=== PATIENT | female | born 1950 | race Caucasian/White ===

== ENCOUNTER 2022-01-08 00:49 | Emergency (ER) | payer MEDICARE, SELFPAY ==
--- NOTE | 2022-01-08 01:09 | XRR_ITS ---
PROCEDURE INFORMATION: Exam: XR Chest Exam date and time: 01/08/2022 1:21 AM Age: 71 years old Clinical indication: Shortness of breath; Patient HX: C/O SOB with tachycardia. ; Additional info: Rapid hr TECHNIQUE: Imaging protocol: XR of the chest. Views: 1 view. COMPARISON: No relevant prior studies available. FINDINGS: Tubes, catheters and devices: Monitor leads project over the chest. Lungs: Low lung volumes. No consolidation. Pleural spaces: No significant costophrenic angle blunting. No pneumothorax. Heart/Mediastinum: Heart size is normal. Vasculature: Atherosclerotic tortuosity of the thoracic aorta. Bones/joints: Thoracic spondylosis and degenerative bony changes. Soft tissues: Large body habitus. XR/XR chest 1V portable [id number] IMPRESSION: No acute abnormality demonstrated.
--- NOTE | 2022-01-08 01:10 | ECG_ITS ---
[facility] Test Date: 2022-01-08 Pat Name: Magnolia Reece Department: Room: Gender: Female Loading And Unloading Supervisor: : 1950 Requested By: Hunter Monet Order Number: [id number] Edna MD: Cj Rose M.D. Measurements Intervals [place] Rate: 127 P: 235 [place]: 205 QRS: -3 QRSD: 105 T: 32 QT: 281 QTc: 410 Interpretive Statements ECTOPIC ATRIAL TACHYCARDIA LOW QRS VOLTAGE IN PRECORDIAL LEADS [QRS DEFLECTION < 1.0 mV IN CHEST LEADS] POSSIBLE ANTERIOR MYOCARDIAL INFARCTION , PROBABLY OLD [30 ms Q WAVE IN V3/V4, OR R < 0.2 mV IN V4] INFERIOR MYOCARDIAL INFARCTION , PROBABLY OLD [40+ ms Q WAVE AND/OR ST/T ABNORMALITY IN II/aVF] No previous ECG available for comparison Electronically Signed On 01-08-2022 22:18:01 CDT by Cj Rose M.D. [id number]
[2022-01-08 01:26] LABS: Add Urine Microscopic? NO; Charge for UA Resulting for Rev
[2022-01-08 01:27] VITALS: BP 132/78; PULSE 105; RESP 20; TEMP 36.4; O2SAT 97; BMI 54.9
--- NOTE | 2022-01-08 01:45 | ED_ITS ---
HPI - Arrhythmia/Palpitations General: Chief Complaint: Arrhythmia/Palpitations Stated Complaint: High heart rate Time Seen by Provider: 01/08/22 01:11 Source: patient Mode of arrival: ambulatory Limitations: no limitations History of Present Illness: A. [id number] female who states she has a history of IBS with chronic diarrhea along with what she takes propafenone and metoprolol for. She states she usually does not have palpitations but over the last 2 days she has been having increased diarrhea from her IBS and then tonight started to have her heart racing states that her heart rate was in the 120s and had been able to get under control. She denies any chest pain denies any abdominal pain denies any fever denies any worsening or improving factors. Review of Systems Const: Denies: fever(s), chills, body aches or change in appetite Eyes: Denies: blurry vision or eye discomfort ENMT: Denies: throat pain or dental pain Card: Reports: palpitations Resp: Denies: dyspnea GI: Reports: diarrhea : Denies: dysuria Musc: Denies: neck pain or back pain Skin/Breast: Denies: rash Neuro: Denies: headache(s) Psych: Denies: depression Fernando/Lymph: Denies: easy bruising All/Imm: Denies: urticaria PFSH ED PFSH: Medical History (Updated 01/08/22 @ 04:15 by Mau Chaudhary MD) Atrial fibrillation Social History (Updated 01/08/22 @ 01:46 by Mau Chaudhary MD) Substance/Drug Use: never Physical Exam Const: COMMON NORMALS: no acute distress, patient oriented x3 and healthy appearing HENMT: COMMON NORMALS: normocephalic and atraumatic HEAD & SCALP: normocephalic and atraumatic Eye: COMMON NORMALS: Equal, round and reactive pupils present and EOMs intact bilaterally PUPIL: Yes Equal, round and reactive pupils present Neck/C-Spine: COMMON NORMALS: full ROM and supple Chest: COMMONS NORMALS: normal inspection of the chest and normal palpation of entire chest wall Resp: COMMON NORMALS: normal respiratory effort, No retractions, No use of acc essory muscles and clear to auscultation bilaterally AUSCULTATION: clear to auscultation bilaterally Cardio: COMMON NORMALS: No murmurs present (Cardio) RATE: tachycardic RHYTHM: abnormal rhythm irregularly irregular GI: COMMON NORMALS: Normal to inspection, nondistended, normoactive bowel sounds present, Soft to palpation, non-tender and no masses PALPATION: Yes Soft to palpation Extremity: COMMON NORMALS: normal to inspection and full ROM Neuro: COMMON NORMALS: patient oriented x3, moves all extremities and no focal motor deficits Psych: COMMON NORMALS: mental status grossly normal, Normal thought process present and cooperative THOUGHT PROCESS: Normal thought process present Skin: COMMON NORMALS: no rashes or lesions noted and no wounds GENERAL SKIN EXAM: no rashes or lesions noted Course Vital Signs: Vital signs: Vital Signs Temperature 97.6 F 01/08/22 01:27 Pulse Rate 83 01/08/22 03:11 Respiratory Rate 22 H 01/08/22 03:11 Blood Pressure 135/74 01/08/22 03:11 Pulse Oximetry 95 01/08/22 03:11 MDM - Arrhythmia/Palpitations Medical Decision Making Patient presents here with Drew. mason RVR much improved here after Cardizem metoprolol her heart rate is now in the 70s she does have diarrhea but is chronic in nature she has some nausea will prescribe her Zofran for home her b lood work here is all normal she is follow-up with PCP and return if worsening. Lab Data : 01/08/22 01:23 01/08/22 01:23 Radiology Impressions Chest X-Ray 01/08/22 01:09 IMPRESSION: No acute abnormality demonstrated. Laboratory Results WBC 11.8 10^3/uL (4.0-10.0) H 01/08/22 01:23 RBC 4.55 10^6/uL (4.1-5.3) 01/08/22 01:23 Hgb 12.6 g/dL (11.5-15.3) 01/08/22 01:23 Hct 41.2 % (37.0-47.0) 01/08/22 01:23 MCV 90.5 fl (81-99) 01/08/22 01:23 MCH 27.7 pg (28.0-34.0) L 01/08/22 01:23 MCHC 30.6 g/dL (30.0-36.0) 01/08/22 01:23 RDW 15.7 % (12.1-15.1) H 01/08/22 01: Plt Count 360 10^3/cmm (130-400) 01/08/22 01: MPV 9.5 fL (7.4-10.4) 01/08/22 01: Neut % (Auto) 76.1 % 01/08/22 01: Lymph % (Auto) 16.1 % 01/08/22 01: [place] % (Auto) 6.4 % 01/08/22 01: Eos % (Auto) 0.6 % 01/08/22 01: Baso % (Auto) 0.3 % 01/08/22 01: Neut # (Auto) 8.99 10^3/uL (1.8-7.7) H 01/08/22: Lymph # (Auto) 1.9 10^3/uL (0.8-4.8) 01/08/22: [place] # (Auto) 0.8 10^3/uL (0.2-0.9) 01/08/22 01: Eos # (Auto) 0.1 10^3/uL (0.0-0.8) 01/08/22 01: Baso # (Auto) 0.0 10^3/uL (0.0-0.1) 01/08/22: Nucleated RBC % (auto) 0 % 01/08/22: Nucleated RBCs # 0.0 /100WBC 01/08/22: PT 13.90 SECONDS (12.1-14.9) 01/08/22: INR 1.04 (0.8-1.2) 01/08/22 01: APTT 32.0 SECONDS (23.9-36.7) 01/08/22 01: D-Dimer 0.52 ug/mIFEU (0-0.59) 01/08/22 01: Sodium 133 mmol/L (136-145) L 01/08/22 01: Potassium 3.7 mmol/L (3.5-5.1) 01/08/22 01: Chloride 97 mmol/L (98-107) L 01/08/22 01: Carbon Dioxide 23 mmol/L (22-29) 01/08/22 01: Anion Gap 16.7 (5-19) 01/08/22 01: BUN 10 mg/dL (8-23) 01/08/22 01: Creatinine 0.5 mg/dL (0.5-0.9) 01/08/22 01: GFR Calculation Not Reportable 01/08/22 01: Glucose 120 mg/dL (65-115) H 01/08/22 01: Calculated Osmolality 276 mOsm/kg (285-295) L 01/08/22 01: Calcium 9.9 mg/dL (8.5-10.5) 01/08/22: Total Bilirubin 0.6 mg/dL (0.15-1.2) 01/08/22: AST 19 U/L (0-32) 01/08/22 01: ALT 18 U/L (0-33) 01/08/22 01: Alkaline Phosphatase 77 IU/L (35-105) 01/08/22 01: Troponin T Baseline 34 ng/L (0-10) H 01/08/22 01: Troponin T 120 Minute 35.57 ng/L (0-10) H 01/08/22 03:30 Delta Troponin T 1.57 ABS# (0-10) 01/08/22 03:30 NT-Pro-B Natriuret Pep 240 pg/mL (0-125) H 01/08/22 01:23 Total Protein 7.4 g/dL (6.6-8.7) 01/08/22 01: Albumin 4.1 g/dL (3.5-5.2) 01/08/22: Globulin 3.3 g/dL (1.3-4.6) 01/08/22 01: TSH 2.13 uIU/mL (0.27-4.20) 01/08/22 01: Urine Color Yellow (Yellow) 01/08/22: Urine Appearance Clear (CLEAR) 01/08/22: Urine pH 5 (5-7) 01/08/22: Ur Specific [place] 1.005 (1.005-1.030) 01/08/22 01: Urine Protein Neg (Negative) 01/08/22: Urine Glucose (UA) Norm (Normal) 04/20/22 01:23 Urine Ketones Negative (Negative) 01/08/22 01:23 Urine Blood Neg (Negative) 01/08/22 01:23 Urine Nitrate Negative (Negative) 01/08/22 01:23 Urine Bilirubin Neg (Negative) 01/08/22 01:23 Urine Urobilinogen Norm mg/dL (Negative) 01/08/22 01:23 Ur Leukocyte Esterase Negative (Negative) 01/08/22 01:23 EKG Data EKG 1: I personally reviewed and interpreted this EKG as follows: EKG interpretation date: 01/08/22 EKG interpretation time: 02:15 Interpretation: Atrial fibrillation heart rate [address] or T wave abnormalities QRS 78 QTC 368 Other EKG comments: Chest X-Ray 01/08/22 01:09 IMPRESSION: No acute abnormality demonstrated. Discharge Plan Discharge Patient Disposition: Home Clinical Impression: Atrial fibrillation, Diarrhea Prescriptions: New ondansetron 4 mg tablet,disintegrating 4 mg PO Q6H PRN (Reason: nausea and vomiting) Qty: 14 0RF No Action metoprolol succinate 50 mg Capsule,Sprinkle,Er 24hr 50 mg PO DAILY 0RF propafenone 150 mg Tablet 150 mg PO BID 0RF Rx Instructions: space evenly during waking hours Vitamin D3 125 mcg (5,000 unit) Tablet 1 unit PO ONCE 0RF Rx Instructions: weekly multivitamin Tablet 1 tab PO DAILY 0RF Discharge Orders: Discharge ED (Routine); Ordered 01/08/22 Ordered By: Mau Chaudhary Discharge Diet: Advance as tolerated Discharge Activity: Resume usual activity Patient Instructions: A-fib (Atrial Fibrillation) (ED) Coding Level of Care Code ED Senior Data Integration Developer for Chg Fwd Exam Comprehensive
[2022-01-08 01:50] LABS: Bilirubin Urine Neg (Negative); Blood Urine Neg (Negative); Glucose Urine UA Norm (Normal); Ketones Urine Negative (Negative); Leukocyte Esterase Urine Negative (Negative); Nitrate Urine Negative (Negative); Protein Urine Neg (Negative); Specific Gravity, Urine 1.005 (1.005-1.030); Urine Appearance Clear (CLEAR); Urine Color Yellow (Yellow); Urobilinogen Urine Norm (Negative); pH Urine 5 (5-7)
[2022-01-08 01:53] VITALS: BP 146/85; PULSE 79; RESP 19; O2SAT 95
[2022-01-08 01:57] LABS: D Dimer 0.52 ug/mIFEU (0-0.59); INR 1.04 (0.8-1.2)
[2022-01-08 02:00] LABS: Troponin(5th) Baseline 34 ng/L (0-10)
[2022-01-08] MEDS: sodium chloride 0.9% 1,000 ML 999 ML IV (02:03)
[2022-01-08 02:05] LABS: Alanine Aminotransferase 18 U/L (0-33); Albumin Level 4.1 g/dL (3.5-5.2); Alkaline Phosphatase 77 IU/L (35-105); Anion Gap 16.7 (5-19); Aspartate Amino Transferase 19 U/L (0-32); Blood Urea Nitrogen 10 mg/dL (8-23); Calcium 9.9 mg/dL (8.5-10.5); Carbon Dioxide 23 mmol/L (22-29); Chloride 97 mmol/L (98-107); Globulin 3.3 g/dL (1.3-4.6); Glucose 120 mg/dL (65-115); NT Pro B Type Natriuretic Pept 240 pg/mL (0-125); Osmolality Calculated 276 mOsm/kg (285-295); Potassium 3.7 mmol/L (3.5-5.1); Sodium 133 mmol/L (136-145); Total Bilirubin 0.6 mg/dL (0.15-1.2); Total Protein 7.4 g/dL (6.6-8.7)
[2022-01-08 02:11] LABS: Basophils % 0.3 %; Eosinophils # 0.1 10^3/uL (0.0-0.8); Eosinophils % 0.6 %; Hematocrit 41.2 % (37.0-47.0); Hemoglobin 12.6 g/dL (11.5-15.3); Lymphocytes # 1.9 10^3/uL (0.8-4.8); Lymphocytes % 16.1 %; Mean Corpuscular HGB Conc 30.6 g/dL (30.0-36.0); Mean Corpuscular Hemoglobin 27.7 pg (28.0-34.0); Mean Corpuscular Volume 90.5 fl (81-99); Mean Platelet Volume 9.5 fL (7.4-10.4); Monocytes # 0.8 10^3/uL (0.2-0.9); Monocytes % 6.4 %; Neutrophils # 8.99 10^3/uL (1.8-7.7); Neutrophils % 76.1 %; Nucleated Red Blood Cells % 0 %; Platelet Count 360 10^3/cmm (130-400); Red Blood Count 4.55 10^6/uL (4.1-5.3); Red Cell Distribution Width 15.7 % (12.1-15.1); White Blood Count 11.8 10^3/uL (4.0-10.0)
[2022-01-08 02:17] LABS: Thyroid Stimulating Hormone 2.13 uIU/mL (0.27-4.20)
[2022-01-08] MEDS: metoprolol tartrate 50 mg Tablet PO (02:23)
[2022-01-08 03:11] VITALS: BP 135/74; PULSE 83; RESP 22; O2SAT 95
[2022-01-08 03:56] LABS: Troponin 5 2HR 35.57 ng/L (0-10)
[2022-01-08 04:13] LABS: Troponin 5 2HR Delta 1.57 ABS# (0-10)
[2022-01-08 04:18] VITALS: BP 125/64; PULSE 70; RESP 22; O2SAT 96
--- NOTE | 2022-01-08 07:10 | ECG_ITS ---
[facility] Test Date: 2022-01-08 Pat Name: Magnolia Reece Department: Room: Gender: Female Disability Services Coordinator: : 1950 Requested By: Hunter oMnet Order Number: [id number] Edna MD: Cj Rose M.D. Measurements Intervals [place] Rate: 92 P: [place]: QRS: -7 QRSD: 78 T: 17 QT: 318 QTc: 394 Interpretive Statements ATRIAL FIBRILLATION LOW QRS VOLTAGE IN PRECORDIAL LEADS [QRS DEFLECTION < 1.0 mV IN CHEST LEADS] MODERATE VOLTAGE CRITERIA FOR LVH, CONSIDER NORMAL VARIANT [MEETS CRITERIA IN ONE OF: R(aVL), S(V1), R(V5), R(V5/V6)+S(V1)] POSSIBLE ANTERIOR MYOCARDIAL INFARCTION , PROBABLY OLD [30 ms Q WAVE IN V3/V4, OR R < 0.2 mV IN V4] ABNORMAL RHYTHM ECG Compared to ECG 01/08/2022 01:15:07 No significant changes Electronically Signed On 01-08-2022 22:29:49 CDT by Cj Rose M.D. [id number]
== END 2022-01-08 04:36 | disposition home or self-care (01) ==
PROVIDERS: Nurse Practitioner Family; Emergency Provider Emergency Medicine
DX: I48.91 Unspecified atrial fibrillation (principal); K58.0 Irritable bowel syndrome with diarrhea
CPT/HCPCS: 71045; 80053; 81003; 83880; 84443; 84484; 85025; 85378; 85610; 85730; 93005; 96361; 96374; 99283; J3490; J7030

== ENCOUNTER → 2024-12-07 14:07 | Outpatient (BNVA) | payer MEDICARE, SELFPAY | PROVIDERS: Visit Provider Podiatrist Foot & Ankle Surgery | DX: M79.671 Pain in right foot (principal); M79.672 Pain in left foot; M20.41 Other hammer toe(s) (acquired), right foot; M20.42 Other hammer toe(s) (acquired), left foot; L84 Corns and callosities | CPT/HCPCS: 73630; 77077; 99203 ==

== ENCOUNTER → 2024-12-16 11:11 | Outpatient (BNVA) | payer MEDICARE, SELFPAY | PROVIDERS: PCP Obstetrics & Gynecology; Visit Provider Orthopaedic Surgery | DX: M25.511 Pain in right shoulder (principal); G89.29 Other chronic pain; M65.4 Radial styloid tenosynovitis [de Quervain] | CPT/HCPCS: 20610; 73030; 99204; J3301; J3490; J9999 ==

== ENCOUNTER 2024-12-20 06:00 | Outpatient (RCR) | payer MEDICARE, SELFPAY | END 2025-01-18 23:59 | disposition home or self-care (01) | LOC: GPT 06:00 | PROVIDERS: Visit Provider Orthopaedic Surgery | DX: M25.512 Pain in left shoulder (principal) | CPT/HCPCS: 97110; 97140; 97161 ==

== ENCOUNTER → 2025-07-28 10:59 | Outpatient (BNVA) | payer MEDICARE, SELFPAY | PROVIDERS: PCP Obstetrics & Gynecology; Visit Provider Orthopaedic Surgery | DX: M19.011 Primary osteoarthritis, right shoulder (principal) | CPT/HCPCS: 20610; 99213 ==

== ENCOUNTER → 2025-09-18 13:54 | Outpatient (BNVA) | payer MEDICARE, SELFPAY | PROVIDERS: PCP Obstetrics & Gynecology; Referring Provider Nurse Practitioner Family; Visit Provider Internal Medicine | DX: I48.91 Unspecified atrial fibrillation (principal); I10 Essential (primary) hypertension; R07.9 Chest pain, unspecified; R94.31 Abnormal electrocardiogram [ECG] [EKG] | CPT/HCPCS: 93005; 99204 ==